=== PATIENT | male | born 1985 | race Caucasian/White ===

== ENCOUNTER 2020-02-28 09:04 | Emergency (ER) | payer OTHER ==
[~2020-02-28] VITALS: Ht 185.4 cm; Wt 113.9 kg
[2020-02-28] MEDS ORDERED: MULTIVITAMIN1 SGL PO (09:18)
[2020-02-28 10:01] VITALS: BP 152/98
== END 2020-02-28 10:01 | disposition home or self-care (01) ==
LOC: ED 09:04
DX: T15.92XA Foreign body on external eye, part unspecified, left eye, initial encounter (principal)